=== PATIENT | female | born 1955 | race Caucasian/White ===

== ENCOUNTER 2017-02-14 21:10 | Inpatient (IN) | payer MEDICARE ==
[2017-02-14] MEDS ORDERED: fentaNYL* 50 MCG/ML 2 ML VIAL (100 MCG VIAL) IV ONE (21:46)
[2017-02-14] MEDS ORDERED: Pantoprazole IV* 40 MG IV ONE (21:46)
[2017-02-14] MEDS ORDERED: NS 0.9% 1000 ML* 2,000 ML IV ONE (21:46)
[2017-02-14] MEDS ORDERED: Ondansetron INJ* 2 MG/ML VIAL IV ONE (21:46)
[2017-02-14 22:16] LABS: Hematocrit 48 % (35-47); Hemoglobin 16.6 g/dl (12.0-16.0); Mean Corpuscular HGB Conc 35 g/dl (31-36); Mean Corpuscular Hemoglobin 28 pg (27-31); Mean Corpuscular Volume 82 fL (80-97); Mean Platelet Volume 10 um3 (7.4-10.4); Red Blood Count 5.88 10^6/ul (4.0-5.4); Red Cell Distribution Width 14 % (10.5-15); White Blood Count 6.6 10^3/ul (3.5-10.8)
[2017-02-14 22:31] LABS: Albumin 4.3 g/dL (3.2-5.2); BUN/Creatinine Ratio 33.8 (8-20); C Reactive Protein 1.19 mg/L (< 5.00); Calcium 9.4 mg/dL (8.6-10.3); EGFR African American 21.1 (>60); EGFR Non-African American 16.4 (>60); Globulin 3.2 g/dL (2-4); Magnesium 2.7 mg/dL (1.9-2.7); Total Bilirubin 0.8 mg/dL (0.2-1.0); Total Protein 7.5 g/dL (6.4-8.9)
[2017-02-14] MEDS ORDERED: Morphine INJ* 4 MG/ML 1 ML SYRINGE IV ONE (22:38)
[2017-02-14 22:50] LABS: Urine Bilirubin Negative (Negative); Urine Glucose Negative (Negative); Urine Nitrite Negative (Negative)
--- NOTE | 2017-02-14 22:53 | RAD ---
Indication: Wheezing, shortness of breath. 2 views of the chest including dual energy PA views demonstrates hyperinflated lung turk. No pleural fluid, pneumonia or pneumothorax is noted. No changes noted since October 24, 2016. IMPRESSION: Hyperinflated lung turk without evidence of pneumonia.
--- NOTE | 2017-02-14 23:02 | ED ---
Duane Bates Alok, scribed for Naga Londono MD on 02/14/17 at 2152 . Abdominal Pain/Female - HPI Summary HPI Summary: 61 y/o female presents to the ED for epigastric pain described as a burning for the last 5 days. Pt states what began as N/V/D 5 days ago with umbilical pain radiating to the pain transitioned to epigastrsic burning pain with lightheadedness and dizziness. Pt last vomited 4 days ago and has tried taking Tums with no effect. Pt states that pain worsens with food and movement and is better with rest. Pt denies hematochezia CP, SOB, fever, chills, leg pain, edema , or cyanosis. Pt also notes a cough. PMHx/PSHx includes HTN, HLD, an appendectomy at age 6 and pancreatitus a few year ago though her current symptoms are unlike anything she has experienced in the past. - History of Current Complaint Chief Complaint: EDAbdPain Stated Complaint: GEN ILL/BURNING IN ABD Time Seen by Provider: 02/14/17 21:31 Hx Obtained From: Patient ?: No Onset/Duration: Gradual Onset, Lasting Days, Still Present Timing: Constant Severity Initially: Moderate Severity Currently: Moderate Pain Intensity: 8 Pain Scale Used: 0-10 Numeric Location: Epigastric Radiates: No Character: Burning Aggravating Factor(s): Food, Movement Alleviating Factor(s): Nothing Associated Signs and Symptoms: Positive: Cough, Dizzy, Decreased Appetite, Nausea, Vomiting, Diarrhea. Negative: Fever, Chest Pain, Blood in Stool Allergies/Adverse Reactions: Allergies Allergy/AdvReac Type Severity Reaction Status Date / Time Hydrocodone Allergy Rash And Verified 02/14/17 22:17 Itching Oxycodone AdvReac Itching Verified 02/14/17 22:17 PMH/Surg Hx/FS Hx/Imm Hx Endocrine/Hematology History: Reports: Hx Anemia - HX OF Denies: Hx Diabetes Cardiovascular History: Reports: Hx Angina, Hx Coronary Artery Disease, Hx Hypercholesterolemia, Hx Hypertension - WELL CONTROLLED, Other Cardiovascular Problems/Disorders - PT STATES HX OF "CARDIAC SPASMS" Denies: Hx Myocardial Infarction, Hx Pacemaker/ICD, Hx Valvular Heart Disease - PATIENT IS NOTED TO HAVE A MURMUR Respiratory History: Reports: Hx Asthma, Hx Chronic Obstructive Pulmonary Disease (COPD) GI History: Reports: Hx Gastroesophageal Reflux Disease History: Reports: Hx Renal Disease - POLYCYSTIC DISEASE, Other Problems/ Disorders - Hx polycystic renal disease Denies: Hx Dialysis Musculoskeletal History: Reports: Hx Arthritis, Other Musculoskeletal History - MULTIPLE ORTHOPEDIC SURGERIES Sensory History: Reports: Hx Contacts or Glasses Denies: Hx Hearing Aid Opthamlomology History: Reports: Hx Contacts or Glasses Neurological History: Reports: Other Neuro Impairments/Disorders - numbness in L arm/hand Psychiatric History: Reports: Hx Anxiety, Hx Depression, Hx Panic Disorder - Surgical History Surgery Procedure, Year, and Place: JOSI SHOULDER - RTC REPAIR [facility] KNEE - 2 SURG - MENISCUS REPAIR [facility] BREAST - 2 LUMPECTOMIES - [facility] APPENDECTOMY [facility] HYSTERECTOMY [facility] CARDIAC CATH - NO STENTS Hx Anesthesia Reactions: Yes - PT STATES MOTHER HAD "UNKNOWN REACTION" TO ANESTHESIA - Immunization History Date of Tetanus Vaccine: UTD Date of Influenza Vaccine: none Infectious Disease History: Yes Infectious Disease History: Reports: Hx Hepatitis - HX HEP A A CHILD, Hx of Known/Suspected MRSA, Hx Shingles Denies: Hx Clostridium Difficile, Hx Human Immunodeficiency Virus (HIV), Hx Tuberculosis, Hx Known/Suspected VRE, Hx Known/Suspected VRSA, History Other Infectious Disease, Traveled Outside the [place] in Last 30 Days - Family History Known Family History: Positive: Cardiac Disease - Social History Occupation: Disabled Lives: With Family - Son Alcohol Use: None Substance Use Type: Reports: None Smoking Status (MU): Heavy Every Day Tobacco Smoker Type: Cigarettes Amount Used/How Often: 1/2 PPD Length of Time of Smoking/Using Tobacco: 40 YRS Have You Smoked in the Last Year: Yes Review of Systems Negative: Fever Negative: Chest Pain Positive: Cough. Negative: Shortness Of Breath Positive: Abdominal Pain, Vomiting, Diarrhea, Nausea Negative: Edema All Other Systems Reviewed And Are Negative: Yes Physical Exam - Summary Physical Exam Summary: The patient is well-nourished in no acute distress and in no acute pain. The skin is warm and dry and skin color reflects adequate perfusion. HEENT: The head is normocephalic and atraumatic. The pupils are equal and reactive. The conjunctivae are clear and without drainage. Nares are patent and without drainage. Mouth reveals dry mucous membranes and the throat is without erythema and exudate. The external ears are intact. The ear canals are patent and without drainage. The tympanic membranes are intact. Neck is supple with full range of motion and non-tender. There are no carotid bruits. There is no neck vein distension. Respiratory: Chest is non-tender. Wheezing positive. Cardiovascular: Hear is regular rate and rhythm. There is no murmur or rub auscultated. There is no peripheral edema and pulses are symmetrical and equal. Abdomen: The abdomen is soft and non-tender. There are normal bowel sounds heard in all four quadrants and there is no organomegaly palpated. Musculoskeletal: There is no back pain noted. Extremities are non-tender with full range of motion. There is good capillary refill. There is no peripheral edema or calf tenderness elicited. Neurological: Patient is alert and oriented to person, place and time. The patient has symmetrical motor strength in all four extremities. Cranial nerves are grossly intact. Deep tendon reflexes are symmetrical and equal in all four extremities. Psychiatric: The patient has an appropriate affect and does not exhibit any anxiety or depression. Triage Information Reviewed: Yes Vital Signs On Initial Exam: Initial Vitals Temp Pulse Resp BP Pulse Ox 96.6 F 57 20 107/67 97 02/14/17 21:13 02/14/17 21:13 02/14/17 21:13 02/14/17 21:13 02/14/17 21:13 Vital Signs Reviewed: Yes Diagnostics - Vital Signs Vital Signs Temp Pulse Resp BP Pulse Ox 02/14/17 21:13 96.6 F 57 20 107/67 97 - Laboratory Lab Results: Lab Results 02/14/17 02/14/17 02/14/17 Range/Units 22:00 22:00 22:00 WBC 6.6 (3.5-10.8) 10^3/ul RBC 5.88 H (4.0-5.4) 10^6/ul Hgb 16.6 H (12.0-16.0) g/dl Hct 48 H (35-47) % MCV 82 (80-97) fL MCH 28 (27-31) pg MCHC 35 (31-36) g/dl RDW 14 (10.5-15) % Plt Count 186 (150-450) 10^3/ul MPV 10 (7.4-10.4) um3 Neut % (Auto) 49.3 (38-83) % Lymph % (Auto) 33.9 (25-47) % Kinney % (Auto) 12.9 H (1-9) % Eos % (Auto) 3.5 (0-6) % Baso % (Auto) 0.4 (0-2) % Absolute Neuts (auto) 3.3 (1.5-7.7) 10^3/ul Absolute Lymphs (auto) 2.2 (1.0-4.8) 10^3/ul Absolute Monos (auto) 0.8 (0-0.8) 10^3/ul Absolute Eos (auto) 0.2 (0-0.6) 10^3/ul Absolute Basos (auto) 0 (0-0.2) 10^3/ul Absolute Nucleated RBC 0.01 10^3/ul Nucleated RBC % 0.1 INR (Anticoag Therapy) (0.89-1.11) Sodium 132 L (133-145) mmol/L Potassium 3.0 L (3.5-5.0) mmol/L Chloride 99 L (101-111) mmol/L Carbon Dioxide 20 L (22-32) mmol/L Anion Gap 13 H (2-11) mmol/L BUN 98 H (6-24) mg/dL Creatinine 2.90 H (0.51-0.95) mg/dL Est GFR ( Amer) 21.1 (>60) Est GFR (Non-Af Amer) 16.4 (>60) BUN/Creatinine Ratio 33.8 H (8-20) Glucose 110 H (70-100) mg/dL Lactic Acid 0.8 (0.5-2.0) mmol/L Calcium 9.4 (8.6-10.3) mg/dL Magnesium 2.7 (1.9-2.7) mg/dL Total Bilirubin 0.80 (0.2-1.0) mg/dL AST 16 (13-39) U/L ALT 16 (7-52) U/L Alkaline Phosphatase 109 H (34-104) U/L Troponin I 0.00 (<0.04) ng/mL C-Reactive Protein 1.19 (< 5.00) mg/L B-Natriuretic Peptide ( - 100) pg/mL Total Protein 7.5 (6.4-8.9) g/dL Albumin 4.3 (3.2-5.2) g/dL Globulin 3.2 (2-4) g/dL Albumin/Globulin Ratio 1.3 (1-3) Amylase 53 (29-103) U/L Lipase 106 H (11.0-82.0) U/L Urine Color Urine Appearance Urine pH (5-9) Ur Specific Campus (1.010-1.030) Urine Protein (Negative) Urine Ketones (Negative) Urine Blood (Negative) Urine Nitrate (Negative) Urine Bilirubin (Negative) Urine Urobilinogen (Negative) Ur Leukocyte Esterase (Negative) Urine Glucose (Negative) 02/14/17 02/14/17 02/14/17 Range/Units 22:00 22:00 22:30 WBC (3.5-10.8) 10^3/ul RBC (4.0-5.4) 10^6/ul Hgb (12.0-16.0) g/dl Hct (35-47) % MCV (80-97) fL MCH (27-31) pg MCHC (31-36) g/dl RDW (10.5-15) % Plt Count (150-450) 10^3/ul MPV (7.4-10.4) um3 Neut % (Auto) (38-83) % Lymph % (Auto) (25-47) % [place] % (Auto) (1-9) % Eos % (Auto) (0-6) % Baso % (Auto) (0-2) % Absolute Neuts (auto) (1.5-7.7) 10^3/ul Absolute Lymphs (auto) (1.0-4.8) 10^3/ul Absolute Monos (auto) (0-0.8) 10^3/ul Absolute Eos (auto) (0-0.6) 10^3/ul Absolute Basos (auto) (0-0.2) 10^3/ul Absolute Nucleated RBC 10^3/ul Nucleated RBC % INR (Anticoag Therapy) 0.92 (0.89-1.11) Sodium (133-145) mmol/L Potassium (3.5-5.0) mmol/L Chloride (101-111) mmol/L Carbon Dioxide (22-32) mmol/L Anion Gap (2-11) mmol/L BUN (6-24) mg/dL Creatinine (0.51-0.95) mg/dL Est GFR ( Amer) (>60) Est GFR (Non-Af Amer) (>60) BUN/Creatinine Ratio (8-20) Glucose (70-100) mg/dL Lactic Acid (0.5-2.0) mmol/L Calcium (8.6-10.3) mg/dL Magnesium (1.9-2.7) mg/dL Total Bilirubin (0.2-1.0) mg/dL AST (13-39) U/L ALT (7-52) U/L Alkaline Phosphatase (34-104) U/L Troponin I (<0.04) ng/mL C-Reactive Protein (< 5.00) mg/L B-Natriuretic Peptide 16 ( - 100) pg/mL Total Protein (6.4-8.9) g/dL Albumin (3.2-5.2) g/dL Globulin (2-4) g/dL Albumin/Globulin Ratio (1-3) Amylase (29-103) U/L Lipase (11.0-82.0) U/L Urine Color Yellow Urine Appearance Cloudy Urine pH 5.0 (5-9) Ur Specific Campus 1.018 (1.010-1.030) Urine Protein Negative (Negative) Urine Ketones Negative (Negative) Urine Blood Negative (Negative) Urine Nitrate Negative (Negative) Urine Bilirubin Negative (Negative) Urine Urobilinogen Negative (Negative) Ur Leukocyte Esterase Negative (Negative) Urine Glucose Negative (Negative) Result Diagrams: 02/14/17 22:00 02/14/17 22:00 Lab Statement: Any lab studies that have been ordered have been reviewed, and results considered in the medical decision making process. - Radiology CXR Xray Interpretation: No Acute Changes - Pending report Radiology Interpretation Completed By: ED Physician - Dr. Londono - CT Abd/Pel CT CT Interpretation: Positive (See Comments) - Pending report CT Interpretation Completed By: Radiologist - EKG 5517 Cardiac Rate: Bradycardia - 49 bpm EKG Rhythm: Sinus Bradycardia EKG Interpretation: No ST Elevation. No STEMI. Normal [place]. Re-Evaluation - Re-Evaluation First Eval Re-Evaluation Time: 22:48 Change: Improved Comment: informed pt she will be admited for further work up. she seems agreeable. Abdominal Pain Fem Course/Dx - Course Course Of Treatment: pt was given IV hydration and analgesia. the case was discussed with Dr. Palmer and he will admit. unable to do IV contrast secondary to pts low GFR. old records were reviewed. - Diagnoses Differential Diagnosis: Positive: Bowel Obstruction, Diverticulitis, Gall Bladder Disease, NE, Pancreatitis, Peptic Ulcer Disease, Urinary Tract Infection , Other - acute renal failure, Provider Diagnoses: Abdominal pain, Acute renal failure, Dehydration - Provider Notifications Discussed Care Of Patient With: Dr. Palmer (Hospitalist) @ [id number] - Critical Care Time Critical Care Time: 30-74 min - 30 minutes Discharge - Discharge Plan Condition: Stable Disposition: ADMITTED TO [facility] The documentation as recorded by the Duane hanson Alok accurately reflects the service I personally performed and the decisions made by Bry mckenna Drew, MD.
--- NOTE | 2017-02-14 23:33 | HP ---
H&P (Free Text) History and Physical: PCP: Jazlyn Sanchez MD Date/Time of Evaluation: 02/14/2017 2330 CC: abdominal pain, N/V/D HPI: Mrs White is a 61YO female reporting onset of epigastric burning associated with N/V/D beginning 5days ago. She denies F/C, sweats, black or bloody emesis/diarrhea, chest pain, SOB, sick contacts, or other issues. She took ABX for a UTI ~6weeks ago. The diarrhea has spontaneously improved from watery to loose, but was never more frequent than 4-6x/day. She had no episodes of fecal incontinence. Vitals are stable, afebrile. Labs show HGB 16.6, K 3.0, BUN/cre 98/2.9 ( baseline 10/0.8), & lipase 106. CT abd/pel WO was read as non-specific enteritis. PMedHx Prinzmetal's angina HTN HLD anxiety Ambulatory Orders Nursing to reconcile. ALPRAZolam TAB* [Xanax TAB*] 1 mg PO TID PRN 10/22/15 Aspirin EC TAB* [Ecotrin EC TAB*] 325 mg PO DAILY 10/22/15 Atenolol TAB* [Tenormin TAB* 50 MG] 50 mg PO DAILY 10/22/15 Esomeprazole Magnesium [Nexium] 40 mg PO DAILY 10/22/15 Vitamin A CAP* 25,000 units PO DAILY 10/22/15 Vitamin E CAP* 400 unit PO DAILY 10/22/15 FLUoxetine CAP* [Prozac CAP*] 40 mg PO DAILY 11/24/15 Amlodipine Besylate [Norvasc 10 mg tab] 10 mg PO DAILY #30 tab 03/20/16 Atorvastatin* [Lipitor*] 80 mg PO QPM #30 tab 03/20/16 Albuterol HFA INHALER* [Ventolin HFA Inhaler*] 2 puff INH Q4H #1 mdi 10/24/16 Nitroglycerin TAB 0.4 MG* 0.4 mg SL . 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 Father passed of COPD w/ HX HTN. ROS: as above, otherwise reviewed and all were negative Constitutional: NAD, normally developed, overweight white female vitals: Vital Signs Temp 35.9 C 02/14/17 21:13 Pulse 57 02/14/17 21:13 Resp 16 02/14/17 22:52 BP 107/67 02/14/17 21:13 Pulse Ox 97 02/14/17 21:13 Intake & Output 02/14/17 02/14/17 02/15/17 11:59 23:59 11:59 Weight 67.585 kg HEENM: atraumatic; sclera/conjunctiva: non-icteric/clear; hearing: clinically intact; oropharynx: clear, mucosa moist Neck: soft tissue: non-tender; thyroid: normal Pulmonary: clear to auscultation bilaterally, good aeration, no accessory muscle use CV: RR/RR, normal S1S2, no carotid bruit, no jugular venous distention, 2+ B DP/ PT, no edema Abdominal: soft, non-distended, mildly diffusely tender, no rebound/guarding/ rigidity, normoactive bowel sounds, no hepatosplenomegaly or masses, no costovertebral angle tenderness Musculoskeletal: general: grossly intact; gait: stable Integumental: normal appearance and texture Psychiatric orientation: AA&O to PPS affect: calm mood: cooperative eye contact: good content: reliable responses: timely insight: good Testing: Lab Results 02/14/17 02/14/17 02/14/17 Range/Units 22:00 22:00 22:00 WBC 6.6 (3.5-10.8) 10^3/ul RBC 5.88 H (4.0-5.4) 10^6/ul Hgb 16.6 H (12.0-16.0) g/dl Hct 48 H (35-47) % MCV 82 (80-97) fL MCH 28 (27-31) pg MCHC 35 (31-36) g/dl RDW 14 (10.5-15) % Plt Count 186 (150-450) 10^3/ul MPV 10 (7.4-10.4) um3 Neut % (Auto) 49.3 (38-83) % Lymph % (Auto) 33.9 (25-47) % [place] % (Auto) 12.9 H (1-9) % Eos % (Auto) 3.5 (0-6) % Baso % (Auto) 0.4 (0-2) % Absolute Neuts (auto) 3.3 (1.5-7.7) 10^3/ul Absolute Lymphs (auto) 2.2 (1.0-4.8) 10^3/ul Absolute Monos (auto) 0.8 (0-0.8) 10^3/ul Absolute Eos (auto) 0.2 (0-0.6) 10^3/ul Absolute Basos (auto) 0 (0-0.2) 10^3/ul Absolute Nucleated RBC 0.01 10^3/ul Nucleated RBC % 0.1 INR (Anticoag Therapy) (0.89-1.11) Sodium 132 L (133-145) mmol/L Potassium 3.0 L (3.5-5.0) mmol/L Chloride 99 L (101-111) mmol/L Carbon Dioxide 20 L (22-32) mmol/L Anion Gap 13 H (2-11) mmol/L BUN 98 H (6-24) mg/dL Creatinine 2.90 H (0.51-0.95) mg/dL Est GFR ( Amer) 21.1 (>60) Est GFR (Non-Af Amer) 16.4 (>60) BUN/Creatinine Ratio 33.8 H (8-20) Glucose 110 H (70-100) mg/dL Lactic Acid 0.8 (0.5-2.0) mmol/L Calcium 9.4 (8.6-10.3) mg/dL Magnesium 2.7 (1.9-2.7) mg/dL Total Bilirubin 0.80 (0.2-1.0) mg/dL AST 16 (13-39) U/L ALT 16 (7-52) U/L Alkaline Phosphatase 109 H (34-104) U/L Troponin I 0.00 (<0.04) ng/mL C-Reactive Protein 1.19 (< 5.00) mg/L B-Natriuretic Peptide ( - 100) pg/mL Total Protein 7.5 (6.4-8.9) g/dL Albumin 4.3 (3.2-5.2) g/dL Globulin 3.2 (2-4) g/dL Albumin/Globulin Ratio 1.3 (1-3) Amylase 53 (29-103) U/L Lipase 106 H (11.0-82.0) U/L Urine Color Urine Appearance Urine pH (5-9) Ur Specific [place] (1.010-1.030) Urine Protein (Negative) Urine Ketones (Negative) Urine Blood (Negative) Urine Nitrate (Negative) Urine Bilirubin (Negative) Urine Urobilinogen (Negative) Ur Leukocyte Esterase (Negative) Urine Glucose (Negative) 02/14/17 02/14/17 02/14/17 Range/Units 22:00 22:00 22:30 WBC (3.5-10.8) 10^3/ul RBC (4.0-5.4) 10^6/ul Hgb (12.0-16.0) g/dl Hct (35-47) % MCV (80-97) fL MCH (27-31) pg MCHC (31-36) g/dl RDW (10.5-15) % Plt Count (150-450) 10^3/ul MPV (7.4-10.4) um3 Neut % (Auto) (38-83) % Lymph % (Auto) (25-47) % Schleicher % (Auto) (1-9) % Eos % (Auto) (0-6) % Baso % (Auto) (0-2) % Absolute Neuts (auto) (1.5-7.7) 10^3/ul Absolute Lymphs (auto) (1.0-4.8) 10^3/ul Absolute Monos (auto) (0-0.8) 10^3/ul Absolute Eos (auto) (0-0.6) 10^3/ul Absolute Basos (auto) (0-0.2) 10^3/ul Absolute Nucleated RBC 10^3/ul Nucleated RBC % INR (Anticoag Therapy) 0.92 (0.89-1.11) Sodium (133-145) mmol/L Potassium (3.5-5.0) mmol/L Chloride (101-111) mmol/L Carbon Dioxide (22-32) mmol/L Anion Gap (2-11) mmol/L BUN (6-24) mg/dL Creatinine (0.51-0.95) mg/dL Est GFR ( Amer) (>60) Est GFR (Non-Af Amer) (>60) BUN/Creatinine Ratio (8-20) Glucose (70-100) mg/dL Lactic Acid (0.5-2.0) mmol/L Calcium (8.6-10.3) mg/dL Magnesium (1.9-2.7) mg/dL Total Bilirubin (0.2-1.0) mg/dL AST (13-39) U/L ALT (7-52) U/L Alkaline Phosphatase (34-104) U/L Troponin I (<0.04) ng/mL C-Reactive Protein (< 5.00) mg/L B-Natriuretic Peptide 16 ( - 100) pg/mL Total Protein (6.4-8.9) g/dL Albumin (3.2-5.2) g/dL Globulin (2-4) g/dL Albumin/Globulin Ratio (1-3) Amylase (29-103) U/L Lipase (11.0-82.0) U/L Urine Color Yellow Urine Appearance Cloudy Urine pH 5.0 (5-9) Ur Specific [place] 1.018 (1.010-1.030) Urine Protein Negative (Negative) Urine Ketones Negative (Negative) Urine Blood Negative (Negative) Urine Nitrate Negative (Negative) Urine Bilirubin Negative (Negative) Urine Urobilinogen Negative (Negative) Ur Leukocyte Esterase Negative (Negative) Urine Glucose Negative (Negative) ECG, personally reviewed: sinus bradycardia rate 49, no ischemia CXR, personally reviewed: IMPRESSION: Hyperinflated lung turk without evidence of pneumonia. CT abd/pel WO, personally reviewed: IMPRESSION: Mild thickening of proximal segments of small bowel suggesting a non-specific enteritis. Mildly prominent retroperitoneal lymph nodes are likely related to gastroentestinal inflammation. Normal appearing pancreas. Impression: 61F presenting with gastroenteritis, dehydration, & KIKA DIAGNOSIS & PLAN Primary gastroenteritis, dehydration, & KIKA : IVFs : trend renal function : anti-emetics : supportive care hypoKalemia : replace & recheck Secondary Prinzmetal's angina : continue aspirin & PRN SL nitro HTN : continue atenolol & amlodipine HLD : continue atorvastatin anxiety : continue fluoxetine & alprazolam GERD : omeprazole Admission Rational: inpatient for management of severe KIKA 2nd dehydration 2nd gastroenteritis not anticipated to adequately improve w/i 48H to allow for discharge DVTp: heparin SQ Code Status: full
[2017-02-15] MEDS ORDERED: Albuterol 2.5 MG/3 ML NEB.SOL* (0.083%) INH PRN (01:29)
[2017-02-15] MEDS ORDERED: Ondansetron INJ* 2 MG/ML VIAL IV PRN (01:30)
[2017-02-15] MEDS ORDERED: Melatonin (NF) 3 MG TAB PO PRN (01:30)
[2017-02-15] MEDS ORDERED: Potassium Chlor TAB* 20 MEQ TAB.ER PO ONE (01:36)
[2017-02-15] MEDS ORDERED: ALPRAZolam TAB* 0.5 MG PO PRN (01:38)
[2017-02-15] MEDS ORDERED: Nitroglycerin TAB 0.4 MG* 0.4 MG TAB SL PRN (01:38)
[2017-02-15] MEDS: traMADol TAB* 50 MG PO PRN ×2 (01:51→20:14)
[2017-02-15 03:47] LABS: Hematocrit 43 % (35-47); Hemoglobin 14.8 g/dl (12.0-16.0); Mean Corpuscular HGB Conc 34 g/dl (31-36); Mean Corpuscular Hemoglobin 28 pg (27-31); Mean Corpuscular Volume 82 fL (80-97); Mean Platelet Volume 10 um3 (7.4-10.4); Red Blood Count 5.26 10^6/ul (4.0-5.4); Red Cell Distribution Width 14 % (10.5-15); White Blood Count 6.9 10^3/ul (3.5-10.8)
[2017-02-15 04:02] LABS: BUN/Creatinine Ratio 36.8 (8-20); Calcium 8.4 mg/dL (8.6-10.3); EGFR African American 27.4 (>60); EGFR Non-African American 21.3 (>60); Potassium 2.9 mmol/L (3.5-5.0)
[2017-02-15] MEDS: Omeprazole CAP* 20 MG PO SCH (06:09)
[2017-02-15] MEDS: Potassium Chlor TAB* 20 MEQ TAB.ER PO SCH ×2 (06:09→08:43)
--- NOTE | 2017-02-15 07:46 | RAD ---
INDICATION: Abdominal pain COMPARISON: None TECHNIQUE: Noncontrast axial source images were acquired from the level hemidiaphragms to the symphysis pubis. The examination was ordered with oral contrast but without intravenous contrast. This limits evaluation of solid viscera. Lung bases: The lung bases are clear. Liver: The liver is normal in size. Noncontrast imaging shows no evidence of a hepatic mass or ductal dilatation. Gallbladder: Cholelithiasis. Spleen: The spleen is top normal in size. There is a tiny splenic granuloma. Pancreas: Noncontrast imaging shows no pancreatic mass or ductal dilitation. Adrenal glands: No masses are identified. Kidneys/Bladder: There is no evidence of nephrolithiasis or CT evidence of hydronephrosis. Noncontrast imaging shows low-density renal lesions bilaterally which likely represent cysts. These measure up to 3.5 cm in diameter bilateral. The bladder is unremarkable.. Adenopathy: There is no evidence of intraperitoneal or retroperitoneal adenopathy. There are several borderline retroperitoneal lymph nodes. Evaluation is limited without oral contrast. Fluid collections: There are no free or localized fluid collections. Vessels: The aorta and iliac vessels are normal in caliber. There are no significant atherosclerotic changes. The IVC appears normal Pelvic organs: There is hysterectomy. There is no adnexal mass GI tract: There are several jejunal loops with mild mucosal thickening. Consider a mild enteritis There are moderate diverticula of the sigmoid colon. There are no CT findings of acute diverticulitis. There is no obstruction. Soft tissues: No soft tissue abnormalities of the extraperitoneal abdomen or pelvis are identified. Osseous structures: There are no acute osseous findings. IMPRESSION: 1. Cholelithiasis 2. Mild mural thickening several jejunal loops may relate to a mild enteritis. 3. Moderate diverticula of the sigmoid colon. 4. Hysterectomy.
--- NOTE | 2017-02-15 07:54 | PN ---
Subjective Date of Service: 02/15/17 Interval History: Less epigastric burning today. No emesis or diarrhea since admission. No new c /o. Objective Active Medications: Albuterol (Ventolin 2.5 Mg/3 Ml Neb.Lashae*) 2.5 mg INH Q2H PRN PRN Reason: SOB/WHEEZING Alprazolam (Xanax Tab*) 1 mg PO TID PRN PRN Reason: ANXIETY Aspirin (Ecotrin Ec Tab*) 325 mg PO DAILY [facility] Atorvastatin Calcium (Lipitor*) 80 mg PO QPM [facility] Fluoxetine HCl (Prozac Cap*) 40 mg PO DAILY [facility] Heparin Sodium (Porcine) (Heparin Vial(*)) 5,000 units SUBCUT Q8HR [facility] Lactated Ringer's (Lactated Ringers 1000 Ml Bag*) 1,000 mls @ 100 mls/hr IV PER RATE [facility] Nitroglycerin (Nitroglycerin Tab 0.4 Mg*) 0.4 mg SL . NEEDED PRN PRN Reason: PAIN - CHEST Omeprazole (Prilosec Cap*) 20 mg PO DAILY@0600 [facility] Last Admin: 02/15/17 06:09 Dose: 20 mg Ondansetron HCl (Zofran Inj*) 4 mg IV Q6H PRN PRN Reason: NAUSEA Potassium Chloride (Klor Con Er Tab*) 40 meq PO Q4H [facility] Stop: 02/15/17 10:01 Last Admin: 02/15/17 06:09 Dose: 40 meq Tramadol HCl (Ultram*) 50 mg PO Q6H PRN PRN Reason: PAIN Last Admin: 02/15/17 01:51 Dose: 50 mg Vital Signs 02/15/17 02/15/17 02/15/17 01:10 01:13 01:51 Temperature 97.4 F 97.4 F Pulse Rate 55 55 Respiratory 16 16 16 Rate Blood Pressure 108/50 108/50 (mmHg) O2 Sat by Pulse 99 99 Oximetry 02/15/17 03:51 Temperature Pulse Rate Respiratory 17 Rate Blood Pressure (mmHg) O2 Sat by Pulse Oximetry Oxygen Devices in Use Now: None Appearance: Alert, supine in bed. In fair spirits. Looks comfortable. Eyes: No Scleral Icterus Ears/Nose/Mouth/Throat: Clear Oropharnyx, Mucous Membranes Moist Neck: NL Appearance and Movements; NL JVP, No Thyroid Enlargement, Masses Respiratory: Symmetrical Chest Expansion and Respiratory Effort, Clear to Auscultation, Clear to Percussion Cardiovascular: NL Sounds; No Murmurs; No JVD, RRR, No Edema, - Abdominal: NL Sounds; No Tenderness; No Distention, No Hepatosplenomegaly, - Extremities: No Edema, No Clubbing, Cyanosis, - Skin: No Rash or Ulcers, No Nodules or Sclerosis, - Neurological: Alert and Oriented x 3, NL Sensation Result Diagrams: 02/15/17 03:34 02/15/17 03:34 Additional Lab and Data: Lab Results 02/14/17 02/14/17 02/14/17 Range/Units 22:00 22:00 22:00 WBC 6.6 (3.5-10.8) 10^3/ul RBC 5.88 H (4.0-5.4) 10^6/ul Hgb 16.6 H (12.0-16.0) g/dl Hct 48 H (35-47) % MCV 82 (80-97) fL MCH 28 (27-31) pg MCHC 35 (31-36) g/dl RDW 14 (10.5-15) % Plt Count 186 (150-450) 10^3/ul MPV 10 (7.4-10.4) um3 Neut % (Auto) 49.3 (38-83) % Lymph % (Auto) 33.9 (25-47) % [place] % (Auto) 12.9 H (1-9) % Eos % (Auto) 3.5 (0-6) % Baso % (Auto) 0.4 (0-2) % Absolute Neuts (auto) 3.3 (1.5-7.7) 10^3/ul Absolute Lymphs (auto) 2.2 (1.0-4.8) 10^3/ul Absolute Monos (auto) 0.8 (0-0.8) 10^3/ul Absolute Eos (auto) 0.2 (0-0.6) 10^3/ul Absolute Basos (auto) 0 (0-0.2) 10^3/ul Absolute Nucleated RBC 0.01 10^3/ul Nucleated RBC % 0.1 INR (Anticoag Therapy) (0.89-1.11) Sodium 132 L (133-145) mmol/L Potassium 3.0 L (3.5-5.0) mmol/L Chloride 99 L (101-111) mmol/L Carbon Dioxide 20 L (22-32) mmol/L Anion Gap 13 H (2-11) mmol/L BUN 98 H (6-24) mg/dL Creatinine 2.90 H (0.51-0.95) mg/dL Est GFR ( Amer) 21.1 (>60) Est GFR (Non-Af Amer) 16.4 (>60) BUN/Creatinine Ratio 33.8 H (8-20) Glucose 110 H (70-100) mg/dL Lactic Acid 0.8 (0.5-2.0) mmol/L Calcium 9.4 (8.6-10.3) mg/dL Magnesium 2.7 (1.9-2.7) mg/dL Total Bilirubin 0.80 (0.2-1.0) mg/dL AST 16 (13-39) U/L ALT 16 (7-52) U/L Alkaline Phosphatase 109 H (34-104) U/L Troponin I 0.00 (<0.04) ng/mL C-Reactive Protein 1.19 (< 5.00) mg/L B-Natriuretic Peptide ( - 100) pg/mL Total Protein 7.5 (6.4-8.9) g/dL Albumin 4.3 (3.2-5.2) g/dL Globulin 3.2 (2-4) g/dL Albumin/Globulin Ratio 1.3 (1-3) Amylase 53 (29-103) U/L Lipase 106 H (11.0-82.0) U/L Urine Color Urine Appearance Urine pH (5-9) Ur Specific [place] (1.010-1.030) Urine Protein (Negative) Urine Ketones (Negative) Urine Blood (Negative) Urine Nitrate (Negative) Urine Bilirubin (Negative) Urine Urobilinogen (Negative) Ur Leukocyte Esterase (Negative) Urine Glucose (Negative) 02/14/17 02/14/17 02/14/17 Range/Units 22:00 22:00 22:30 WBC (3.5-10.8) 10^3/ul RBC (4.0-5.4) 10^6/ul Hgb (12.0-16.0) g/dl Hct (35-47) % MCV (80-97) fL MCH (27-31) pg MCHC (31-36) g/dl RDW (10.5-15) % Plt Count (150-450) 10^3/ul MPV (7.4-10.4) um3 Neut % (Auto) (38-83) % Lymph % (Auto) (25-47) % [place] % (Auto) (1-9) % Eos % (Auto) (0-6) % Baso % (Auto) (0-2) % Absolute Neuts (auto) (1.5-7.7) 10^3/ul Absolute Lymphs (auto) (1.0-4.8) 10^3/ul Absolute Monos (auto) (0-0.8) 10^3/ul Absolute Eos (auto) (0-0.6) 10^3/ul Absolute Basos (auto) (0-0.2) 10^3/ul Absolute Nucleated RBC 10^3/ul Nucleated RBC % INR (Anticoag Therapy) 0.92 (0.89-1.11) Sodium (133-145) mmol/L Potassium (3.5-5.0) mmol/L Chloride (101-111) mmol/L Carbon Dioxide (22-32) mmol/L Anion Gap (2-11) mmol/L BUN (6-24) mg/dL Creatinine (0.51-0.95) mg/dL Est GFR ( Amer) (>60) Est GFR (Non-Af Amer) (>60) BUN/Creatinine Ratio (8-20) Glucose (70-100) mg/dL Lactic Acid (0.5-2.0) mmol/L Calcium (8.6-10.3) mg/dL Magnesium (1.9-2.7) mg/dL Total Bilirubin (0.2-1.0) mg/dL AST (13-39) U/L ALT (7-52) U/L Alkaline Phosphatase (34-104) U/L Troponin I (<0.04) ng/mL C-Reactive Protein (< 5.00) mg/L B-Natriuretic Peptide 16 ( - 100) pg/mL Total Protein (6.4-8.9) g/dL Albumin (3.2-5.2) g/dL Globulin (2-4) g/dL Albumin/Globulin Ratio (1-3) Amylase (29-103) U/L Lipase (11.0-82.0) U/L Urine Color Yellow Urine Appearance Cloudy Urine pH 5.0 (5-9) Ur Specific [place] 1.018 (1.010-1.030) Urine Protein Negative (Negative) Urine Ketones Negative (Negative) Urine Blood Negative (Negative) Urine Nitrate Negative (Negative) Urine Bilirubin Negative (Negative) Urine Urobilinogen Negative (Negative) Ur Leukocyte Esterase Negative (Negative) Urine Glucose Negative (Negative) Microbiology and Other Data: Microbiology 02/15/17 01:00 Nasal Screen MRSA (PCR)(MELISSA) - Final Nasal Mrsa Negative Assess/Plan/Problems-Billing Assessment: - Patient Problems (1) Gastroenteritis Current Visit: Yes Status: Acute Code(s): K52.9 - NONINFECTIVE GASTROENTERITIS AND COLITIS, UNSPECIFIED SNOMED Code(s): 90070366 Comment: Improving. Supportive tx. (2) KIKA (acute kidney injury) Current Visit: Yes Status: Acute Code(s): N17.9 - ACUTE KIDNEY FAILURE, UNSPECIFIED SNOMED Code(s): 96553172 Comment: Improved. Decrease IV to 100 ml/hr. BMP 02/16. (3) Tobacco abuse Current Visit: No Status: Acute Code(s): Z72.0 - TOBACCO USE SNOMED Code(s ): 943683508 Comment: Pt advised to quit smoking and avoid second hand smoke,. (4) HTN (hypertension) Current Visit: No Status: Acute Code(s): I10 - ESSENTIAL (PRIMARY) HYPERTENSION SNOMED Code(s): 98448387 Comment: Amlodipine on hold. (5) COPD (chronic obstructive pulmonary disease) Current Visit: Yes Status: Acute Code(s): J44.9 - CHRONIC OBSTRUCTIVE PULMONARY DISEASE, UNSPECIFIED SNOMED Code(s): 60221140 Comment: Albuterol PRN.
[2017-02-15] MEDS: Aspirin EC TAB* 325 MG PO SCH (08:42)
[2017-02-15] MEDS: FLUoxetine CAP* 20 MG PO SCH (08:43)
[2017-02-15] MEDS ORDERED: NS 0.9% 500 ML BAG* 500 ML IV SCH (13:00)
[2017-02-15] MEDS ORDERED: Atorvastatin* 80 MG TAB PO SCH (18:00)
[2017-02-15 18:44] LABS: TSH (Thyroid Stimulating Horm) 1.02 mcIU/mL (0.34-5.60)
[2017-02-16] MEDS: Omeprazole CAP* 20 MG PO SCH (05:16)
[2017-02-16] MEDS ORDERED: Heparin VIAL(*) 5000 UNITS/ML VIAL (FIVE THOUSAND) SUBCUT SCH (06:00)
[2017-02-16 06:59] LABS: Calcium 8.5 mg/dL (8.6-10.3); EGFR African American 65.2 (>60); EGFR Non-African American 50.7 (>60); Potassium 3.9 mmol/L (3.5-5.0)
[2017-02-16 07:57] VITALS: BP 116/54
--- NOTE | 2017-02-16 08:57 | DCNOTE ---
Subjective Date of Service: 02/16/17 Interval History: Mild diarrhea. Good appetite. No new c/o, anxious to go home. Objective Active Medications: Albuterol (Ventolin 2.5 Mg/3 Ml Neb.Lsahae*) 2.5 mg INH Q2H PRN PRN Reason: SOB/WHEEZING Alprazolam (Xanax Tab*) 1 mg PO TID PRN PRN Reason: ANXIETY Last Admin: 02/15/17 20:22 Dose: 1 mg Aspirin (Ecotrin Ec Tab*) 325 mg PO DAILY [facility] Last Admin: 02/15/17 08:42 Dose: 325 mg Atorvastatin Calcium (Lipitor*) 80 mg PO QPM [facility] Last Admin: 02/15/17 18:07 Dose: 80 mg Fluoxetine HCl (Prozac Cap*) 40 mg PO DAILY [facility] Last Admin: 02/15/17 08:43 Dose: 40 mg Heparin Sodium (Porcine) (Heparin Vial(*)) 5,000 units SUBCUT Q8HR [facility] Last Admin: 02/16/17 05:16 Dose: 5,000 units Nitroglycerin (Nitroglycerin Tab 0.4 Mg*) 0.4 mg SL . NEEDED PRN PRN Reason: PAIN - CHEST Omeprazole (Prilosec Cap*) 20 mg PO DAILY@0600 [facility] Last Admin: 02/16/17 05:16 Dose: 20 mg Ondansetron HCl (Zofran Inj*) 4 mg IV Q6H PRN PRN Reason: NAUSEA Last Admin: 02/15/17 20:15 Dose: 4 mg Tramadol HCl (Ultram*) 50 mg PO Q6H PRN PRN Reason: PAIN Last Admin: 02/15/17 20:14 Dose: 50 mg Vital Signs 02/15/17 02/15/17 02/15/17 11:33 12:14 15:14 Temperature 97.7 F 98.1 F Pulse Rate 50 47 51 Respiratory 18 Rate Blood Pressure 98/49 105/51 104/54 (mmHg) O2 Sat by Pulse 96 96 98 Oximetry 02/15/17 02/15/17 02/15/17 19:43 20:14 20:22 Temperature 98.3 F Pulse Rate 52 Respiratory 16 16 18 Rate Blood Pressure 103/47 (mmHg) O2 Sat by Pulse 97 Oximetry 02/15/17 02/15/17 02/15/17 20:29 22:14 22:22 Temperature Pulse Rate Respiratory 16 16 16 Rate Blood Pressure (mmHg) O2 Sat by Pulse Oximetry 02/15/17 02/16/17 02/16/17 23:30 05:04 07:15 Temperature 97.5 F 98.1 F 97.4 F Pulse Rate 60 47 49 Respiratory 16 20 18 Rate Blood Pressure 125/59 117/58 116/54 (mmHg) O2 Sat by Pulse 98 95 98 Oximetry 02/16/17 08:19 Temperature Pulse Rate 60 Respiratory 14 Rate Blood Pressure (mmHg) O2 Sat by Pulse 96 Oximetry Oxygen Devices in Use Now: None Appearance: Alert, sitting up in be.d Eyes: No Scleral Icterus Cardiovascular: NL Sounds; No Murmurs; No JVD, RRR, No Edema, - Extremities: No Edema, No Clubbing, Cyanosis, - Skin: No Rash or Ulcers, No Nodules or Sclerosis, - Neurological: Alert and Oriented x 3, NL Sensation Result Diagrams: 02/15/17 03:34 02/16/17 06:28 Additional Lab and Data: Lab Results 02/14/17 02/14/17 02/14/17 Range/Units 22:00 22:00 22:00 WBC 6.6 (3.5-10.8) 10^3/ul RBC 5.88 H (4.0-5.4) 10^6/ul Hgb 16.6 H (12.0-16.0) g/dl Hct 48 H (35-47) % MCV 82 (80-97) fL MCH 28 (27-31) pg MCHC 35 (31-36) g/dl RDW 14 (10.5-15) % Plt Count 186 (150-450) 10^3/ul MPV 10 (7.4-10.4) um3 Neut % (Auto) 49.3 (38-83) % Lymph % (Auto) 33.9 (25-47) % [place] % (Auto) 12.9 H (1-9) % Eos % (Auto) 3.5 (0-6) % Baso % (Auto) 0.4 (0-2) % Absolute Neuts (auto) 3.3 (1.5-7.7) 10^3/ul Absolute Lymphs (auto) 2.2 (1.0-4.8) 10^3/ul Absolute Monos (auto) 0.8 (0-0.8) 10^3/ul Absolute Eos (auto) 0.2 (0-0.6) 10^3/ul Absolute Basos (auto) 0 (0-0.2) 10^3/ul Absolute Nucleated RBC 0.01 10^3/ul Nucleated RBC % 0.1 INR (Anticoag Therapy) (0.89-1.11) Sodium 132 L (133-145) mmol/L Potassium 3.0 L (3.5-5.0) mmol/L Chloride 99 L (101-111) mmol/L Carbon Dioxide 20 L (22-32) mmol/L Anion Gap 13 H (2-11) mmol/L BUN 98 H (6-24) mg/dL Creatinine 2.90 H (0.51-0.95) mg/dL Est GFR ( Amer) 21.1 (>60) Est GFR (Non-Af Amer) 16.4 (>60) BUN/Creatinine Ratio 33.8 H (8-20) Glucose 110 H (70-100) mg/dL Lactic Acid 0.8 (0.5-2.0) mmol/L Calcium 9.4 (8.6-10.3) mg/dL Magnesium 2.7 (1.9-2.7) mg/dL Total Bilirubin 0.80 (0.2-1.0) mg/dL AST 16 (13-39) U/L ALT 16 (7-52) U/L Alkaline Phosphatase 109 H (34-104) U/L Troponin I 0.00 (<0.04) ng/mL C-Reactive Protein 1.19 (< 5.00) mg/L B-Natriuretic Peptide ( - 100) pg/mL Total Protein 7.5 (6.4-8.9) g/dL Albumin 4.3 (3.2-5.2) g/dL Globulin 3.2 (2-4) g/dL Albumin/Globulin Ratio 1.3 (1-3) Amylase 53 (29-103) U/L Lipase 106 H (11.0-82.0) U/L Urine Color Urine Appearance Urine pH (5-9) Ur Specific [place] (1.010-1.030) Urine Protein (Negative) Urine Ketones (Negative) Urine Blood (Negative) Urine Nitrate (Negative) Urine Bilirubin (Negative) Urine Urobilinogen (Negative) Ur Leukocyte Esterase (Negative) Urine Glucose (Negative) 02/14/17 02/14/17 02/14/17 Range/Units 22:00 22:00 22:30 WBC (3.5-10.8) 10^3/ul RBC (4.0-5.4) 10^6/ul Hgb (12.0-16.0) g/dl Hct (35-47) % MCV (80-97) fL MCH (27-31) pg MCHC (31-36) g/dl RDW (10.5-15) % Plt Count (150-450) 10^3/ul MPV (7.4-10.4) um3 Neut % (Auto) (38-83) % Lymph % (Auto) (25-47) % [place] % (Auto) (1-9) % Eos % (Auto) (0-6) % Baso % (Auto) (0-2) % Absolute Neuts (auto) (1.5-7.7) 10^3/ul Absolute Lymphs (auto) (1.0-4.8) 10^3/ul Absolute Monos (auto) (0-0.8) 10^3/ul Absolute Eos (auto) (0-0.6) 10^3/ul Absolute Basos (auto) (0-0.2) 10^3/ul Absolute Nucleated RBC 10^3/ul Nucleated RBC % INR (Anticoag Therapy) 0.92 (0.89-1.11) Sodium (133-145) mmol/L Potassium (3.5-5.0) mmol/L Chloride (101-111) mmol/L Carbon Dioxide (22-32) mmol/L Anion Gap (2-11) mmol/L BUN (6-24) mg/dL Creatinine (0.51-0.95) mg/dL Est GFR ( Amer) (>60) Est GFR (Non-Af Amer) (>60) BUN/Creatinine Ratio (8-20) Glucose (70-100) mg/dL Lactic Acid (0.5-2.0) mmol/L Calcium (8.6-10.3) mg/dL Magnesium (1.9-2.7) mg/dL Total Bilirubin (0.2-1.0) mg/dL AST (13-39) U/L ALT (7-52) U/L Alkaline Phosphatase (34-104) U/L Troponin I (<0.04) ng/mL C-Reactive Protein (< 5.00) mg/L B-Natriuretic Peptide 16 ( - 100) pg/mL Total Protein (6.4-8.9) g/dL Albumin (3.2-5.2) g/dL Globulin (2-4) g/dL Albumin/Globulin Ratio (1-3) Amylase (29-103) U/L Lipase (11.0-82.0) U/L Urine Color Yellow Urine Appearance Cloudy Urine pH 5.0 (5-9) Ur Specific [place] 1.018 (1.010-1.030) Urine Protein Negative (Negative) Urine Ketones Negative (Negative) Urine Blood Negative (Negative) Urine Nitrate Negative (Negative) Urine Bilirubin Negative (Negative) Urine Urobilinogen Negative (Negative) Ur Leukocyte Esterase Negative (Negative) Urine Glucose Negative (Negative) Microbiology and Other Data: Microbiology 02/15/17 01:00 Nasal Screen MRSA (PCR)(MELISSA) - Final Nasal Mrsa Negative Assess/Plan/Problems-Billing Assessment: - Patient Problems (1) Gastroenteritis Current Visit: Yes Status: Acute Code(s): K52.9 - NONINFECTIVE GASTROENTERITIS AND COLITIS, UNSPECIFIED SNOMED Code(s): 84204668 Comment: Much improved. Can fup with Dr. Sanchez. (2) KIKA (acute kidney injury) Current Visit: Yes Status: Acute Code(s): N17.9 - ACUTE KIDNEY FAILURE, UNSPECIFIED SNOMED Code(s): 04624888 Comment: Much improved. Can fup with Dr. Sanchez. (3) Tobacco abuse Current Visit: No Status: Acute Code(s): Z72.0 - TOBACCO USE SNOMED Code(s ): 812930388 Comment: Pt again advised to quit smoking and avoid second hand smoke,. (4) HTN (hypertension) Current Visit: No Status: Acute Code(s): I10 - ESSENTIAL (PRIMARY) HYPERTENSION SNOMED Code(s): 35968434 Comment: Amlodipine on hold. (5) COPD (chronic obstructive pulmonary disease) Current Visit: Yes Status: Acute Code(s): J44.9 - CHRONIC OBSTRUCTIVE PULMONARY DISEASE, UNSPECIFIED SNOMED Code(s): 08754512 Comment: Albuterol PRN. Status and Disposition: Discharge now. Fup with Dr. Sanchez.
--- NOTE | 2017-02-16 08:58 | DCNOTE ---
Subjective Date of Service: 02/16/17 Interval History: See earlier note today. Objective Active Medications: Albuterol (Ventolin 2.5 Mg/3 Ml Neb.Lashae*) 2.5 mg INH Q2H PRN PRN Reason: SOB/WHEEZING Alprazolam (Xanax Tab*) 1 mg PO TID PRN PRN Reason: ANXIETY Last Admin: 02/15/17 20:22 Dose: 1 mg Aspirin (Ecotrin Ec Tab*) 325 mg PO DAILY [facility] Last Admin: 02/15/17 08:42 Dose: 325 mg Atorvastatin Calcium (Lipitor*) 80 mg PO QPM [facility] Last Admin: 02/15/17 18:07 Dose: 80 mg Fluoxetine HCl (Prozac Cap*) 40 mg PO DAILY [facility] Last Admin: 02/15/17 08:43 Dose: 40 mg Heparin Sodium (Porcine) (Heparin Vial(*)) 5,000 units SUBCUT Q8HR [facility] Last Admin: 02/16/17 05:16 Dose: 5,000 units Nitroglycerin (Nitroglycerin Tab 0.4 Mg*) 0.4 mg SL . NEEDED PRN PRN Reason: PAIN - CHEST Omeprazole (Prilosec Cap*) 20 mg PO DAILY@0600 [facility] Last Admin: 02/16/17 05:16 Dose: 20 mg Ondansetron HCl (Zofran Inj*) 4 mg IV Q6H PRN PRN Reason: NAUSEA Last Admin: 02/15/17 20:15 Dose: 4 mg Tramadol HCl (Ultram*) 50 mg PO Q6H PRN PRN Reason: PAIN Last Admin: 02/15/17 20:14 Dose: 50 mg Vital Signs 02/15/17 02/15/17 02/15/17 11:33 12:14 15:14 Temperature 97.7 F 98.1 F Pulse Rate 50 47 51 Respiratory 18 Rate Blood Pressure 98/49 105/51 104/54 (mmHg) O2 Sat by Pulse 96 96 98 Oximetry 02/15/17 02/15/17 02/15/17 19:43 20:14 20:22 Temperature 98.3 F Pulse Rate 52 Respiratory 16 16 18 Rate Blood Pressure 103/47 (mmHg) O2 Sat by Pulse 97 Oximetry 02/15/17 02/15/17 02/15/17 20:29 22:14 22:22 Temperature Pulse Rate Respiratory 16 16 16 Rate Blood Pressure (mmHg) O2 Sat by Pulse Oximetry 02/15/17 02/16/17 02/16/17 23:30 05:04 07:15 Temperature 97.5 F 98.1 F 97.4 F Pulse Rate 60 47 49 Respiratory 16 20 18 Rate Blood Pressure 125/59 117/58 116/54 (mmHg) O2 Sat by Pulse 98 95 98 Oximetry 02/16/17 08:19 Temperature Pulse Rate 60 Respiratory 14 Rate Blood Pressure (mmHg) O2 Sat by Pulse 96 Oximetry Oxygen Devices in Use Now: None Result Diagrams: 02/15/17 03:34 02/16/17 06:28 Additional Lab and Data: Lab Results 02/14/17 02/14/17 02/14/17 Range/Units 22:00 22:00 22:00 WBC 6.6 (3.5-10.8) 10^3/ul RBC 5.88 H (4.0-5.4) 10^6/ul Hgb 16.6 H (12.0-16.0) g/dl Hct 48 H (35-47) % MCV 82 (80-97) fL MCH 28 (27-31) pg MCHC 35 (31-36) g/dl RDW 14 (10.5-15) % Plt Count 186 (150-450) 10^3/ul MPV 10 (7.4-10.4) um3 Neut % (Auto) 49.3 (38-83) % Lymph % (Auto) 33.9 (25-47) % [place] % (Auto) 12.9 H (1-9) % Eos % (Auto) 3.5 (0-6) % Baso % (Auto) 0.4 (0-2) % Absolute Neuts (auto) 3.3 (1.5-7.7) 10^3/ul Absolute Lymphs (auto) 2.2 (1.0-4.8) 10^3/ul Absolute Monos (auto) 0.8 (0-0.8) 10^3/ul Absolute Eos (auto) 0.2 (0-0.6) 10^3/ul Absolute Basos (auto) 0 (0-0.2) 10^3/ul Absolute Nucleated RBC 0.01 10^3/ul Nucleated RBC % 0.1 INR (Anticoag Therapy) (0.89-1.11) Sodium 132 L (133-145) mmol/L Potassium 3.0 L (3.5-5.0) mmol/L Chloride 99 L (101-111) mmol/L Carbon Dioxide 20 L (22-32) mmol/L Anion Gap 13 H (2-11) mmol/L BUN 98 H (6-24) mg/dL Creatinine 2.90 H (0.51-0.95) mg/dL Est GFR ( Amer) 21.1 (>60) Est GFR (Non-Af Amer) 16.4 (>60) BUN/Creatinine Ratio 33.8 H (8-20) Glucose 110 H (70-100) mg/dL Lactic Acid 0.8 (0.5-2.0) mmol/L Calcium 9.4 (8.6-10.3) mg/dL Magnesium 2.7 (1.9-2.7) mg/dL Total Bilirubin 0.80 (0.2-1.0) mg/dL AST 16 (13-39) U/L ALT 16 (7-52) U/L Alkaline Phosphatase 109 H (34-104) U/L Troponin I 0.00 (<0.04) ng/mL C-Reactive Protein 1.19 (< 5.00) mg/L B-Natriuretic Peptide ( - 100) pg/mL Total Protein 7.5 (6.4-8.9) g/dL Albumin 4.3 (3.2-5.2) g/dL Globulin 3.2 (2-4) g/dL Albumin/Globulin Ratio 1.3 (1-3) Amylase 53 (29-103) U/L Lipase 106 H (11.0-82.0) U/L Urine Color Urine Appearance Urine pH (5-9) Ur Specific [place] (1.010-1.030) Urine Protein (Negative) Urine Ketones (Negative) Urine Blood (Negative) Urine Nitrate (Negative) Urine Bilirubin (Negative) Urine Urobilinogen (Negative) Ur Leukocyte Esterase (Negative) Urine Glucose (Negative) 02/14/17 02/14/17 02/14/17 Range/Units 22:00 22:00 22:30 WBC (3.5-10.8) 10^3/ul RBC (4.0-5.4) 10^6/ul Hgb (12.0-16.0) g/dl Hct (35-47) % MCV (80-97) fL MCH (27-31) pg MCHC (31-36) g/dl RDW (10.5-15) % Plt Count (150-450) 10^3/ul MPV (7.4-10.4) um3 Neut % (Auto) (38-83) % Lymph % (Auto) (25-47) % [place] % (Auto) (1-9) % Eos % (Auto) (0-6) % Baso % (Auto) (0-2) % Absolute Neuts (auto) (1.5-7.7) 10^3/ul Absolute Lymphs (auto) (1.0-4.8) 10^3/ul Absolute Monos (auto) (0-0.8) 10^3/ul Absolute Eos (auto) (0-0.6) 10^3/ul Absolute Basos (auto) (0-0.2) 10^3/ul Absolute Nucleated RBC 10^3/ul Nucleated RBC % INR (Anticoag Therapy) 0.92 (0.89-1.11) Sodium (133-145) mmol/L Potassium (3.5-5.0) mmol/L Chloride (101-111) mmol/L Carbon Dioxide (22-32) mmol/L Anion Gap (2-11) mmol/L BUN (6-24) mg/dL Creatinine (0.51-0.95) mg/dL Est GFR ( Amer) (>60) Est GFR (Non-Af Amer) (>60) BUN/Creatinine Ratio (8-20) Glucose (70-100) mg/dL Lactic Acid (0.5-2.0) mmol/L Calcium (8.6-10.3) mg/dL Magnesium (1.9-2.7) mg/dL Total Bilirubin (0.2-1.0) mg/dL AST (13-39) U/L ALT (7-52) U/L Alkaline Phosphatase (34-104) U/L Troponin I (<0.04) ng/mL C-Reactive Protein (< 5.00) mg/L B-Natriuretic Peptide 16 ( - 100) pg/mL Total Protein (6.4-8.9) g/dL Albumin (3.2-5.2) g/dL Globulin (2-4) g/dL Albumin/Globulin Ratio (1-3) Amylase (29-103) U/L Lipase (11.0-82.0) U/L Urine Color Yellow Urine Appearance Cloudy Urine pH 5.0 (5-9) Ur Specific [place] 1.018 (1.010-1.030) Urine Protein Negative (Negative) Urine Ketones Negative (Negative) Urine Blood Negative (Negative) Urine Nitrate Negative (Negative) Urine Bilirubin Negative (Negative) Urine Urobilinogen Negative (Negative) Ur Leukocyte Esterase Negative (Negative) Urine Glucose Negative (Negative) Microbiology and Other Data: Microbiology 02/15/17 01:00 Nasal Screen MRSA (PCR)(MELISSA) - Final Nasal Mrsa Negative Assess/Plan/Problems-Billing Assessment: - Patient Problems (1) Gastroenteritis Current Visit: Yes Status: Acute Code(s): K52.9 - NONINFECTIVE GASTROENTERITIS AND COLITIS, UNSPECIFIED SNOMED Code(s): 77105106 Comment: Much improved. Can fup with Dr. Sanchez. (2) KIKA (acute kidney injury) Current Visit: Yes Status: Acute Code(s): N17.9 - ACUTE KIDNEY FAILURE, UNSPECIFIED SNOMED Code(s): 12988177 Comment: Much improved. Can fup with Dr. Sanchez. (3) Tobacco abuse Current Visit: No Status: Acute Code(s): Z72.0 - TOBACCO USE SNOMED Code(s ): 868171832 Comment: Pt again advised to quit smoking and avoid second hand smoke,. (4) HTN (hypertension) Current Visit: No Status: Acute Code(s): I10 - ESSENTIAL (PRIMARY) HYPERTENSION SNOMED Code(s): 85350747 Comment: Amlodipine on hold. (5) COPD (chronic obstructive pulmonary disease) Current Visit: Yes Status: Acute Code(s): J44.9 - CHRONIC OBSTRUCTIVE PULMONARY DISEASE, UNSPECIFIED SNOMED Code(s): 70828948 Comment: Albuterol PRN. (6) HTN (hypertension) Current Visit: Yes Status: Acute Code(s): I10 - ESSENTIAL (PRIMARY) HYPERTENSION SNOMED Code(s): 00502508 Comment: BP 116/54 off her BP meds. Continue to withhold them until her visit with Dr. Sanchez. Status and Disposition: Discharge now. Fup with Dr. Sanchez.
[2017-02-16] MEDS: Aspirin EC TAB* 325 MG PO SCH (08:59)
[2017-02-16] MEDS: FLUoxetine CAP* 20 MG PO SCH (08:59)
--- NOTE | 2017-02-16 09:21 | PN ---
Progress Note - Progress Note Note: Time spent on discharge 55 minutes.
--- NOTE | 2017-02-16 22:55 | DS ---
Amended report to enter date of admission. DISCHARGE SUMMARY: DATE OF ADMISSION: 02/14/17 DATE OF DISCHARGE: 02/16/17 HISTORY: This 61-year-old woman came to the emergency room with a chief complaint of abdominal pain, nausea, vomiting, and diarrhea. She had an antibiotic for urinary tract infection 6 weeks ago. I know there has been many cases of gastroenteritis through the community. The patient was given intravenous fluids and treated symptomatically. She had a CT scan of the abdomen and pelvis as well as a chest x-ray while here. She had acute kidney injury, which was almost completely resolved by the time of discharge. Her creatinine fell from 2.90 to 1.09 on the day of discharge. Symptomatically, she is much better. I think the abdominal pain was probably due to the emesis at home. She was markedly improved with just a little bit of residual diarrhea by the time of discharge. She did not receive any antihypertensive medications in the hospital. Her highest systolic blood pressure here was 125 and the highest diastolic blood pressure was 67, on the morning of discharge it was 116/54. I advised to not to take any blood pressure medication until her visit with Dr. Sanchez. She was strongly encouraged to quit smoking. She was advised to have a low-salt diet. FINAL DIAGNOSES: 1. Gastroenteritis. 2. Acute injury. 3. Tobacco abuse. 4. Hypertension. 5. Chronic obstructive pulmonary disease. DISCHARGE MEDICATIONS: 1. Vitamin E 400 units daily. 2. Vitamin A 25,000 units daily. 3. Alprazolam 1 mg t.i.d. p.r.n. 4. Esomeprazole 40 mg daily. 5. Aspirin 325 mg p.o. daily. 6. Fluoxetine 40 mg daily. 7. Albuterol 2 puffs every 4 hours as needed. 8. Nitroglycerin 0.4 mg sublingual as needed. CC: Dr. Sanchez* [id number]/[facility] #: [id number] [facility]andra
== END 2017-02-16 10:45 | disposition home or self-care (01) | DRG 683 ==
LOC: ED 21:10 → MED 23:53
PROVIDERS: ADMIT Hospitalist; ATTEND Internal Medicine
DX: N17.9 Acute kidney failure, unspecified (principal); Q61.3 Polycystic kidney, unspecified; K52.9 Noninfective gastroenteritis and colitis, unspecified; I10 Essential (primary) hypertension; E86.0 Dehydration; E78.5 Hyperlipidemia, unspecified; I25.111 Atherosclerotic heart disease of native coronary artery with angina pectoris with documented spasm; E78.00 Pure hypercholesterolemia, unspecified; J44.9 Chronic obstructive pulmonary disease, unspecified; K21.9 Gastro-esophageal reflux disease without esophagitis; M19.90 Unspecified osteoarthritis, unspecified site; F41.0 Panic disorder [episodic paroxysmal anxiety]; F32.9 Major depressive disorder, single episode, unspecified; F17.210 Nicotine dependence, cigarettes, uncomplicated; E87.6 Hypokalemia; Z88.6 Allergy status to analgesic agent; Z90.710 Acquired absence of both cervix and uterus; Z82.49 Family history of ischemic heart disease and other diseases of the circulatory system; Z87.440 Personal history of urinary (tract) infections; Z82.0 Family history of epilepsy and other diseases of the nervous system; Z82.5 Family history of asthma and other chronic lower respiratory diseases; Z79.82 Long term (current) use of aspirin
CPT/HCPCS: 36415; 71020; 74176; 80048; 80053; 81003; 82150; 83605; 83690; 83735; 83880; 84443; 84484; 85025; 85027; 85610; 85730; 86140; 87641; 93005; A9270-GY; J1644; J2270; J2405; J3010

== ENCOUNTER 2017-03-26 21:41 | Emergency (ER) | payer MEDICARE ==
[2017-03-26] MEDS ORDERED: Albuterol/Ipratropium NEB.SOL* Albuterol 2.5 MG/Ipratropium 0.5 MG 3 ML INH ONE (21:59)
[2017-03-26] MEDS ORDERED: predniSONE TAB* 20 MG PO ONE (21:59)
--- NOTE | 2017-03-26 22:07 | ED ---
Mahesh Bates Benjamin, scribed for Tato Lott MD on 03/26/17 at 2202 . Shortness of Breath - HPI Summary HPI Summary: 62yo female c/o SOB and cough for 3-4 days. Pt started having her symptoms are inhaling some cleaning chemicals 3-4 days ago. No other symptoms. Hx includes COPD. Former smoker. - History of Current Complaint Chief Complaint: EDShortnessOfBreath Time Seen by Provider: 03/26/17 21:52 Hx Obtained From: Patient Onset/Duration: Sudden Onset, Lasting Days, Still Present Timing: Constant Current Severity: Mild Dyspnea At: Rest Aggrevating Factors: Nothing Alleviating Factors: Nothing Associated Signs & Symptoms: Cough (Nonproductive) - Allergy/Home Medications Allergies/Adverse Reactions: Allergies Allergy/AdvReac Type Severity Reaction Status Date / Time Hydrocodone Allergy Rash And Verified 02/14/17 22:17 Itching Oxycodone AdvReac Itching Verified 02/14/17 22:17 PMH/Surg Hx/FS Hx/Imm Hx Endocrine/Hematology History: Reports: Hx Anemia - HX OF Denies: Hx Diabetes Cardiovascular History: Reports: Hx Angina - Prinzmetal's angina, Hx Coronary Artery Disease, Hx Hypercholesterolemia, Hx Hypertension - WELL CONTROLLED, Other Cardiovascular Problems/Disorders - HLD Denies: Hx Myocardial Infarction, Hx Pacemaker/ICD, Hx Valvular Heart Disease - PATIENT IS NOTED TO HAVE A MURMUR Respiratory History: Reports: Hx Asthma, Hx Chronic Obstructive Pulmonary Disease (COPD) GI History: Reports: Hx Gastroesophageal Reflux Disease, Other GI Disorders - Pancreatitis History: Reports: Hx Renal Disease - POLYCYSTIC DISEASE, Other Problems/ Disorders - Hx polycystic renal disease Denies: Hx Dialysis Musculoskeletal History: Reports: Hx Arthritis, Other Musculoskeletal History - MULTIPLE ORTHOPEDIC SURGERIES Sensory History: Reports: Hx Vision Problem - lazy eye Denies: Hx Cataracts, Hx Contacts or Glasses, Hx Hearing Aid Opthamlomology History: Reports: Hx Vision Problem - lazy eye Denies: Hx Cataracts, Hx Contacts or Glasses Neurological History: Reports: Other Neuro Impairments/Disorders - numbness in L arm/hand Psychiatric History: Reports: Hx Anxiety, Hx Depression, Hx Panic Disorder - Surgical History Surgery Procedure, Year, and Place: JOSI SHOULDER - RTC REPAIR [facility] Lt [facility]NEE - 2 SURG - MENISCUS REPAIR [facility] Lt BREAST - 2 LUMPECTOMIES - [facility] APPENDECTOMY [facility] HYSTERECTOMY [facility]. CARDIAC CATH - NO STENTS. Paridectomy Hx Anesthesia Reactions: Yes - PT STATES MOTHER HAD "UNKNOWN REACTION" TO ANESTHESIA - Immunization History Date of Tetanus Vaccine: UTD Date of Influenza Vaccine: none Infectious Disease History: No Infectious Disease History: Reports: Hx Hepatitis - HX HEP A A CHILD, Hx of Known/Suspected MRSA, Hx Shingles Denies: Hx Clostridium Difficile, Hx Human Immunodeficiency Virus (HIV), Hx Tuberculosis, Hx Known/Suspected VRE, Hx Known/Suspected VRSA, History Other Infectious Disease, Traveled Outside the [place] in Last 30 Days - Family History Known Family History: Positive: Cardiac Disease, Other - CAD - Social History Occupation: Disabled Lives: With Family Alcohol Use: Rare Substance Use Type: Reports: None Smoking Status (MU): Former Smoker Type: Cigarettes Amount Used/How Often: 1/2 PPD Length of Time of Smoking/Using Tobacco: 40 YRS Have You Smoked in the Last Year: Yes Review of Systems Constitutional: Negative Eyes: Negative ENT: Negative Cardiovascular: Negative Positive: Shortness Of Breath, Cough Gastrointestinal: Negative Genitourinary: Negative Musculoskeletal: Negative Skin: Negative Neurological: Negative Psychological: Normal All Other Systems Reviewed And Are Negative: Yes Physical Exam Triage Information Reviewed: Yes Vital Signs On Initial Exam: Initial Vitals Temp Pulse Resp BP Pulse Ox 99.5 F 108 18 156/82 96 03/26/17 21:43 03/26/17 21:43 03/26/17 21:43 03/26/17 21:43 03/26/17 21:43 Vital Signs Reviewed: Yes Appearance: Positive: Well-Appearing, No Pain Distress Skin: Positive: Warm Head/Face: Positive: Normal Head/Face Inspection Eyes: Positive: KARY ENT: Positive: Hearing grossly normal Neck: Positive: Supple Respiratory/Lung Sounds: Positive: Breath Sounds Present, Wheezes - bilat scattered exp with prolonged expiration. Negative: Rhonchi Cardiovascular: Positive: RRR Abdomen Description: Positive: Nontender, Soft Bowel Sounds: Positive: Present Musculoskeletal: Positive: Strength/ROM Intact Neurological: Positive: Alert, Oriented to Person Place, Time Diagnostics - Vital Signs Vital Signs Temp Pulse Resp BP Pulse Ox 03/26/17 21:43 99.5 F 108 18 156/82 96 - Laboratory Lab Statement: Any lab studies that have been ordered have been reviewed, and results considered in the medical decision making process. - Radiology CXR Xray Interpretation: Positive (See Comments) - poss rll infilt Radiology Interpretation Completed By: ED Physician - EKG 2148 Cardiac Rate: Tachycardia - 103bpm EKG Rhythm: Sinus Tachycardia ST Segment: Normal Re-Evaluation - Re-Evaluation First Eval Change: Improved Course/Dx - Diagnoses Provider Diagnoses: Asthma, Bronchitis Discharge - Discharge Plan Condition: Improved Disposition: HOME Prescriptions: Azithromycin TAB* [Zithromax TAB (Z-IVANA) 250 mg #6 tabs] 250 mg PO DAILY #4 tab predniSONE TAB* [Deltasone TAB*] 40 mg PO DAILY #8 tab Patient Education Materials: Asthma (ED) Referrals: Toan Palmer MD [Primary Care Provider] - The documentation as recorded by the Mahesh hanson Benjamin accurately reflects the service I personally performed and the decisions made by me, Tato Lott MD.
[2017-03-26] MEDS ORDERED: Azithromycin TAB* 250 MG PO ONE (22:30)
[2017-03-26 22:49] VITALS: BP 128/69
--- NOTE | 2017-03-26 22:58 | RAD ---
INDICATION: Shortness of breath. COMPARISON: Similar chest x-ray dated February 14, 2017 TECHNIQUE: PA and lateral views of the chest were obtained. FINDINGS: The heart and mediastinum are normal in size and contour. The lungs are grossly clear. There is no evidence of large pleural effusion. Visualized bones are normal for the patient's age. There is no radiographic evidence of free air beneath the diaphragm IMPRESSION: No radiographic evidence of acute cardiopulmonary disease.
== END 2017-03-26 23:05 | disposition home or self-care (01) ==
LOC: ED 21:41
DX: J40 Bronchitis, not specified as acute or chronic (principal); R06.02 Shortness of breath; J45.909 Unspecified asthma, uncomplicated
CPT/HCPCS: 71020; 93005; 94640; 99282; A9270-GY; J7512

== ENCOUNTER 2017-08-23 14:48 | Emergency (ER) | payer MEDICARE ==
[2017-08-23] MEDS ORDERED: Ondansetron INJ* 2 MG/ML VIAL IV ONE (16:02)
[2017-08-23] MEDS ORDERED: NS 0.9% 1000 ML* 1,000 ML IV ONE (16:02)
[2017-08-23] MEDS ORDERED: Morphine INJ* 4 MG/ML 1 ML CARPUJECT IV ONE (16:02)
[2017-08-23 16:39] LABS: Hematocrit 44 % (35-47); Hemoglobin 15.2 g/dl (12.0-16.0); Mean Corpuscular HGB Conc 34 g/dl (31-36); Mean Corpuscular Hemoglobin 29 pg (27-31); Mean Corpuscular Volume 83 fL (80-97); Mean Platelet Volume 9 um3 (7.4-10.4); Red Blood Count 5.31 10^6/ul (4.0-5.4); Red Cell Distribution Width 15 % (10.5-15)
[2017-08-23 16:54] LABS: Albumin 3.7 g/dL (3.2-5.2); BUN/Creatinine Ratio 13.4 (8-20); C Reactive Protein 17.03 mg/L (< 5.00); Calcium 9.4 mg/dL (8.6-10.3); EGFR African American 90.3 (>60); EGFR Non-African American 70.2 (>60); Globulin 2.6 g/dL (2-4); Total Bilirubin 1.2 mg/dL (0.2-1.0); Total Protein 6.3 g/dL (6.4-8.9)
[2017-08-23] MEDS ORDERED: Iohexol 300* (CONTRAST) 10 ML SDV IV ONE (16:56)
--- NOTE | 2017-08-23 17:27 | RAD ---
Indication: Abdominal pain. Contrast: Administered 81.3 ml of OMNIPAQUE 300 mg/ml CT of the abdomen and pelvis was performed after oral and IV contrast administration. Coronal and sagittal reconstructed images were obtained. Lung bases demonstrate no pleural fluid, nodules or masses. Heart is of normal size without evidence of pericardial effusion. Liver is normal in size. No focal lesions or intrahepatic ductal dilatation is noted. The common duct is not dilated. The gallbladder demonstrates no gallstones, pericholecystic fluid or wall thickening. The spleen is normal in size. No adrenal lesions are noted. The kidneys demonstrate symmetric nephrograms without hydronephrosis. Bilateral renal cysts are noted. Small left-sided retroperitoneal lymph nodes are noted measuring up to 10 mm. Atherosclerotic aorta is noted. Common iliac and external iliac arteries are unremarkable. The bladder is unremarkable. No dilated loops of bowel are noted. CT of the pelvis demonstrates no retroperitoneal or pelvic lymphadenopathy noted. The bony structures demonstrates degenerative disc disease at L5-S1. IMPRESSION: NO ABNORMAL MASSES OR FLUID COLLECTIONS ARE NOTED. BILATERAL RENAL CYSTS ARE NOTED. NO EVIDENCE OF BOWEL OBSTRUCTION IS NOTED.
[2017-08-23 17:32] LABS: Urine Bilirubin Negative (Negative); Urine Glucose Negative (Negative); Urine Nitrite Negative (Negative)
[2017-08-23 19:37] VITALS: BP 149/78
--- NOTE | 2017-08-25 08:22 | ED ---
Oliver Bates Angela, scribed for Demond Edwards MD on 08/23/17 at 1602 . Abdominal Pain/Female - HPI Summary HPI Summary: This pt is a 62 y/o female presenting to [facility] c/o worsening mid abdominal pain x5 days. Pt was seen by her PCP today and was referred to the ED for an US and blood work. Pt states her pain is non-radiating and is rated 8 out of 10 in severity. She notes that her pain is aggravated with PO intake of food and water. Pt reports having soft bowel movements after PO intake. She denies nausea , vomiting, constipation. PSHx: hysterectomy (years ago). - History of Current Complaint Chief Complaint: EDAbdPain Stated Complaint: ABD PAIN Time Seen by Provider: 08/23/17 15:46 Hx Obtained From: Patient Onset/Duration: Lasting Days, Still Present Timing: Days Severity Initially: Moderate Severity Currently: Severe Pain Intensity: 8 Pain Scale Used: 0-10 Numeric Radiates: No Aggravating Factor(s): Food - and liquids Alleviating Factor(s): Nothing Associated Signs and Symptoms: Positive: Other: - soft stools s/p eating. Negative: Constipation, Nausea, Vomiting Allergies/Adverse Reactions: Allergies Allergy/AdvReac Type Severity Reaction Status Date / Time Hydrocodone Allergy Rash And Verified 02/14/17 22:17 Itching Oxycodone AdvReac Itching Verified 02/14/17 22:17 PMH/Surg Hx/FS Hx/Imm Hx Endocrine/Hematology History: Reports: Hx Anemia - HX OF Denies: Hx Diabetes Cardiovascular History: Reports: Hx Angina - Prinzmetal's angina, Hx Coronary Artery Disease, Hx Hypercholesterolemia, Hx Hypertension - WELL CONTROLLED, Other Cardiovascular Problems/Disorders - HLD Denies: Hx Myocardial Infarction, Hx Pacemaker/ICD, Hx Valvular Heart Disease - PATIENT IS NOTED TO HAVE A MURMUR Respiratory History: Reports: Hx Asthma, Hx Chronic Obstructive Pulmonary Disease (COPD) GI History: Reports: Hx Gastroesophageal Reflux Disease, Other GI Disorders - Pancreatitis History: Reports: Hx Renal Disease - POLYCYSTIC DISEASE, Other Problems/ Disorders - Hx polycystic renal disease Denies: Hx Dialysis Musculoskeletal History: Reports: Hx Arthritis, Other Musculoskeletal History - MULTIPLE ORTHOPEDIC SURGERIES Sensory History: Reports: Hx Vision Problem - lazy eye Denies: Hx Cataracts, Hx Contacts or Glasses, Hx Hearing Aid Opthamlomology History: Reports: Hx Vision Problem - lazy eye Denies: Hx Cataracts, Hx Contacts or Glasses Neurological History: Reports: Other Neuro Impairments/Disorders - numbness in L arm/hand Psychiatric History: Reports: Hx Anxiety, Hx Depression, Hx Panic Disorder - Surgical History Surgery Procedure, Year, and Place: JOSI SHOULDER - RTC REPAIR [facility] Lt [facility]NEE - 2 SURG - MENISCUS REPAIR [facility] Lt BREAST - 2 LUMPECTOMIES - [facility]. APPENDECTOMY [facility]. HYSTERECTOMY [facility]. CARDIAC CATH - NO STENTS. Paridectomy Hx Anesthesia Reactions: Yes - PT STATES MOTHER HAD "UNKNOWN REACTION" TO ANESTHESIA - Immunization History Date of Tetanus Vaccine: UTD Date of Influenza Vaccine: none Infectious Disease History: No Infectious Disease History: Reports: Hx Hepatitis - HX HEP A A CHILD, Hx of Known/Suspected MRSA, Hx Shingles Denies: Hx Clostridium Difficile, Hx Human Immunodeficiency Virus (HIV), Hx Tuberculosis, Hx Known/Suspected VRE, Hx Known/Suspected VRSA, History Other Infectious Disease, Traveled Outside the [place] in Last 30 Days - Family History Known Family History: Positive: Cardiac Disease, Other - CAD - Social History Alcohol Use: Rare Substance Use Type: Reports: None Smoking Status (MU): Former Smoker Type: Cigarettes Amount Used/How Often: 1/2 PPD Length of Time of Smoking/Using Tobacco: 40 YRS Have You Smoked in the Last Year: Yes Review of Systems Negative: Fever, Chills Eyes: Negative ENT: Negative Cardiovascular: Negative Gastrointestinal: Other - soft bowel movements s/p eating Positive: Abdominal Pain. Negative: Vomiting, Nausea, Other - constipation Genitourinary: Negative Skin: Negative Neurological: Negative All Other Systems Reviewed And Are Negative: Yes Physical Exam - Summary Physical Exam Summary: VITAL SIGNS: Reviewed. GENERAL: Patient is a well-developed and nourished female who is lying comfortable in the stretcher. Patient is not in any acute respiratory distress. HEAD AND FACE: Normocephalic and atraumatic. EYES: PERRLA, EOMI x 2, No injected conjunctiva. EARS: Hearing grossly intact. Ear canals and tympanic membranes are WNL. MOUTH: Oropharynx within normal limits. NECK: Supple, trachea is midline, no adenopathy, no JVD. CHEST: Symmetric, no tenderness at palpation LUNGS: Clear to auscultation bilaterally. No wheezing or crackles. CVS: RRR, S1 and S2 present, no murmurs or gallops appreciated. ABDOMEN: Soft. Pt has periumbiilical tenderness, more RLQ than LLQ. No signs of distention. Positive bowel sounds. No rebound no guarding, and no masses palpated. No abdominal bruit or pulsations. EXTREMITIES: FROM in all major joints, no edema, no cyanosis or clubbing. NEURO: Alert and oriented x 3. No acute neurological deficits. Speech is normal. SKIN: Dry and warm Triage Information Reviewed: Yes Vital Signs On Initial Exam: Initial Vitals Temp Pulse Resp BP Pulse Ox 99.2 F 81 20 135/69 97 08/23/17 15:13 08/23/17 15:13 08/23/17 15:13 08/23/17 15:13 08/23/17 15:13 Vital Signs Reviewed: Yes Diagnostics - Vital Signs Vital Signs Temp Pulse Resp BP Pulse Ox 08/23/17 15:13 99.2 F 81 20 135/69 97 - Laboratory Result Diagrams: 08/23/17 16:32 08/23/17 16:32 Lab Statement: Any lab studies that have been ordered have been reviewed, and results considered in the medical decision making process. - CT Abdomen/Pelvis CT CT Interpretation: No Acute Changes - IMPRESSION: No abnormal masses or fluid collection are noted. Bilateral renal cysts are noted. No evidence of bowel obstruction is noted. ED physician has reviewed this radiology report and agrees. CT Interpretation Completed By: Radiologist - EKG 1616 Cardiac Rate: NL - 81 bpm EKG Rhythm: Sinus Rhythm EKG Interpretation: No ST elevation Re-Evaluation - Re-Evaluation First Eval Re-Evaluation Time: 17:57 Comment: I discussed the CT results with the pt. Abdominal Pain Fem Course/Dx - Course Course Of Treatment: This pt is a 62 y/o female presenting to [facility] c/o worsening mid abdominal pain x5 days. Pt was seen by her PCP today and was referred to the ED for an US and blood work. Pt states her pain is non- radiating and is rated 8 out of 10 in severity. She notes that her pain is aggravated with PO intake of food and water. Pt reports having soft bowel movements after PO intake. She denies nausea, vomiting, constipation. Test results without any significant abnormalities except for potassium of 3. Abdomen /pelvis CT shows no abnormal masses or fluid collections are noted. Bilateral renal cysts are noted. No evidence of bowel obstruction is noted. I offered the pt potassium, but she reports she doesnt do well with potassium pills. She states she would rather eat food with high potassium. She was given 1 dose of morphine and was observed for a couple of hours. The pts pain has resolved and is feeling better. At this point the pt is drinking and eating without any nausea and vomiting, without any pain. Therefore, the pt will be discharged home. Pt is hemodynamically stable, alert and oriented x3. PSHx: hysterectomy ( years ago). - Diagnoses Provider Diagnoses: Abdominal pain Discharge - Discharge Plan Condition: Stable Disposition: HOME Patient Education Materials: Abdominal Pain (ED) Referrals: [facility] PHYSICIAN REFERRAL [Outside] Additional Instructions: Please follow up with your primary care provider. The documentation as recorded by the Oliver hanson Angela accurately reflects the service I personally performed and the decisions made by me, Demond Edwards MD.
== END 2017-08-23 19:12 | disposition home or self-care (01) ==
LOC: ED 14:48
DX: R10.33 Periumbilical pain (principal); R10.31 Right lower quadrant pain; R10.32 Left lower quadrant pain; I25.119 Atherosclerotic heart disease of native coronary artery with unspecified angina pectoris; I10 Essential (primary) hypertension; E78.00 Pure hypercholesterolemia, unspecified; J44.9 Chronic obstructive pulmonary disease, unspecified; K21.9 Gastro-esophageal reflux disease without esophagitis; K85.90 Acute pancreatitis without necrosis or infection, unspecified; Q61.3 Polycystic kidney, unspecified; F41.0 Panic disorder [episodic paroxysmal anxiety]; F32.9 Major depressive disorder, single episode, unspecified; Z90.710 Acquired absence of both cervix and uterus; Z88.5 Allergy status to narcotic agent; Z87.891 Personal history of nicotine dependence
CPT/HCPCS: 36415; 74177; 80053; 81003; 82150; 83605; 83690; 83880; 85025; 86140; 93005; 96361; 96374; 96375; 99282; J2270; J2405; Q9967

== ENCOUNTER 2019-10-26 12:47 | Emergency (ER) | payer MEDICARE ==
[2019-10-26] MEDS ORDERED: Albuterol 2.5 MG/3 ML NEB.SOL* (0.083%) INH ONE (14:40)
--- NOTE | 2019-10-26 15:00 | ED ---
Shortness of Breath - HPI Summary HPI Summary: This patient is a 64 year old female presenting to [facility] with a chief complaint of SOB. She states it started off as a cold. She reports cough, and then flank and shoulder pain when she does cough. She states she was here 5 months ago for the same symptoms. She reports SOB. She states it is a productive cough with thick green sputum. Pt states hx of poly cystic disease and afib. She states she quit smoking 6 months ago. She states her O2 sat drops to 40-60% when she is sleeping. Pt denies any fever, chills, erythema of eyes, sore throat, CP, abdominal pain, N/V, dysuria, hematuria, myalgia, edema, rash, or dizziness. - History of Current Complaint Chief Complaint: EDUpperRespComplaint Time Seen by Provider: 10/26/19 14:25 Hx Obtained From: Patient - Allergy/Home Medications Allergies/Adverse Reactions: Allergies Allergy/AdvReac Type Severity Reaction Status Date / Time codeine Allergy Nausea Verified 10/26/19 12:56 hydrocodone Allergy Hives Verified 10/26/19 12:56 oxycodone Allergy Hives Verified 10/26/19 12:56 Home Medications: Home Medications Albuterol/Ipratropium RESP(NF) [Combivent Respimat(NF)] 1 puff INH DAILY [History Confirmed 10/26/19] Apixaban* [Eliquis*] 5 mg PO BID 10/26/19 [History Confirmed 10/26/19] Atorvastatin* [Lipitor 80 MG*] 80 mg PO BEDTIME 10/26/19 [History Confirmed ] Nitroglycerin 0.3 MG/HR PATCH* [Nitroglycerin 7.5 MG PATCH*] 1 patch TRANSDERM DAILY 10/26/19 [History Confirmed 10/26/19] PMH/Surg Hx/FS Hx/Imm Hx Endocrine/Hematology History: Reports: Hx Anemia - HX OF Denies: Hx Diabetes Cardiovascular History: Reports: Hx Angina - Prinzmetal's angina, Hx Coronary Artery Disease, Hx Hypercholesterolemia, Hx Hypertension - WELL CONTROLLED, Other Cardiovascular Problems/Disorders - HLD Denies: Hx Myocardial Infarction, Hx Pacemaker/ICD, Hx Valvular Heart Disease - PATIENT IS NOTED TO HAVE A MURMUR Respiratory History: Reports: Hx Asthma, Hx Chronic Obstructive Pulmonary Disease (COPD) GI History: Reports: Hx Gastroesophageal Reflux Disease, Other GI Disorders - Pancreatitis History: Reports: Hx Renal Disease - POLYCYSTIC DISEASE, Other Problems/ Disorders - Hx polycystic renal disease Denies: Hx Dialysis Musculoskeletal History: Reports: Hx Arthritis, Other Musculoskeletal History - MULTIPLE ORTHOPEDIC SURGERIES Sensory History: Reports: Hx Vision Problem - lazy eye Denies: Hx Cataracts, Hx Contacts or Glasses, Hx Hearing Aid Opthamlomology History: Reports: Hx Vision Problem - lazy eye Denies: Hx Cataracts, Hx Contacts or Glasses Neurological History: Reports: Other Neuro Impairments/Disorders - numbness in L arm/hand Psychiatric History: Reports: Hx Anxiety, Hx Depression, Hx Panic Disorder - Surgical History Surgery Procedure, Year, and Place: JOSI SHOULDER - RTC REPAIR [facility]. Lt KNEE - 2 SURG - MENISCUS REPAIR [facility]. Lt BREAST - 2 LUMPECTOMIES - [facility]. APPENDECTOMY [facility]. HYSTERECTOMY [facility]. CARDIAC CATH - NO STENTS. Paridectomy Hx Anesthesia Reactions: Yes - PT STATES MOTHER HAD "UNKNOWN REACTION" TO ANESTHESIA - Immunization History Date of Tetanus Vaccine: utd Date of Influenza Vaccine: unk Infectious Disease History: Yes Infectious Disease History: Reports: Hx Hepatitis - HX HEP A A CHILD, Hx of Known/Suspected MRSA, Hx Shingles Denies: Hx Clostridium Difficile, Hx Human Immunodeficiency Virus (HIV), Hx Tuberculosis, Hx Known/Suspected VRE, Hx Known/Suspected VRSA, History Other Infectious Disease, Traveled Outside the [place] in Last 30 Days - Family History Known Family History: Positive: Cardiac Disease - Social History Alcohol Use: None Hx Substance Use: No Substance Use Type: Reports: None Hx Tobacco Use: Yes Smoking Status (MU): Former Smoker Type: Cigarettes Amount Used/How Often: 1/2 PPD Length of Time of Smoking/Using Tobacco: 40 YRS Have You Smoked in the Last Year: Yes Review of Systems Negative: Fever, Chills Negative: Erythema Negative: Sore Throat Negative: Chest Pain Positive: Shortness Of Breath, Cough Negative: Abdominal Pain, Vomiting, Nausea Positive: flank pain. Negative: dysuria, hematuria Positive: Other - Shoulder pain.. Negative: Myalgia, Edema Negative: Rash Neurological: Other - Neg: Dizziness All Other Systems Reviewed And Are Negative: No Physical Exam - Summary Physical Exam Summary: Constitutional: Well-developed, Well-nourished, Alert. (-) Distressed Skin: Warm, Dry HENT: Normocephalic; Atraumatic Eyes: Conjunctiva normal Neck: Musculoskeletal ROM normal neck. (-) JVD, (-) Stridor, (-) Tracheal deviation Cardio: Rhythm regular, rate normal, Heart sounds normal; Intact distal pulses; The pedal pulses are 2+ and symmetric. Radial pulses are 2+ and symmetric. (-) Murmur Pulmonary/Chest wall: Effort normal. (-) Respiratory distress, (-) Wheezes, (-) Rales Abd: Soft, (-) tenderness, (-) Distension, (-) Guarding, (-) Rebound Musculoskeletal: (-) Edema Lymph: (-) Cervical adenopathy Neuro: Alert, Oriented x3 Psych: Mood and affect Normal Triage Information Reviewed: Yes Vital Signs On Initial Exam: Initial Vitals Temp Pulse Resp BP Pulse Ox 98.7 F 90 20 140/76 94 10/26/19 12:51 10/26/19 12:51 10/26/19 12:51 10/26/19 12:51 10/26/19 12:51 Vital Signs Reviewed: Yes Procedures - Sedation Patient Received Moderate/Deep Sedation with Procedure: No Diagnostics - Vital Signs Vital Signs Temp Pulse Resp BP Pulse Ox 10/26/19 14:34 81 95 10/26/19 12:51 98.7 F 90 20 140/76 94 - Laboratory Result Diagrams: 10/26/19 14:40 10/26/19 14:40 Lab Statement: Any lab studies that have been ordered have been reviewed, and results considered in the medical decision making process. - Radiology CXR Radiology Interpretation Completed By: Radiologist Summary of Radiographic Findings: No active cardiopulmonary disease is noted. ED Provider has reviewed this report. - EKG 1457 Cardiac Rate: NL - 79 BPM EKG Rhythm: Sinus Rhythm Summary of EKG Findings: No STEMI. ED Physician has reviewed this report. Course/Dx - Course Course Of Treatment: This patient is a 64 year old female presenting to [facility] with a chief complaint of SOB. All symptoms are related to coughing. She has no urinary symptoms. Labs were unremarkable except RBC 5.23 H, Glucose 118 H, and Alkaline Phosphatase 113H. CXR was negative for cardiopulmonary problems. EKG was unremarkable. Plan for discharge was discussed with the patient and she was agreeable with this plan. - Diagnoses Provider Diagnoses: Bronchitis, Chest wall muscle strain Discharge ED - Sign-Out/Discharge Documenting (check all that apply): Patient Departure - Discharge - Discharge Plan Condition: Stable Disposition: HOME Prescriptions: Albuterol HFA INHALER* [Ventolin HFA Inhaler*] 1 - 2 puff INH Q4H PRN #1 mdi PRN Reason: Cough Codeine Phosphate/Guaifenesin [Codeine/Guaifenesin 100-10 mg/5Ml] 5 ml PO BEDTIME #1 bottle MDD 5 ml DOXYcycline CAP(*) [DOXYcycline 100MG CAP(*)] 100 mg PO BID #14 cap predniSONE TAB* [Deltasone TAB*] 50 mg PO DAILY #4 tab Patient Education Materials: Acute Bronchitis (ED) Referrals: Harris Winston MD [Primary Care Provider] - 3 Days Additional Instructions: Return to ED with new or worsening symptoms. - Billing Disposition and Condition Condition: STABLE Disposition: Home - Attestation Statements Document Initiated by Maria Isabel: Yes Documenting Scribe: Óscar Copeland Provider For Whom Maria Isabel is Documenting (Include Credential): Prince Murphy MD Scribe Attestation: Óscar Bates, scribed for Prince Murphy MD on 10/26/19 at 2106. Scribe Documentation Reviewed: Yes Provider Attestation: The documentation as recorded by the annibÓscar cam accurately reflects the service I personally performed and the decisions made by me, Prince Murphy MD Status of Scribe Document: Viewed
[2019-10-26 15:02] LABS: ABS Basophils 0.1 10^3/ul (0-0.2); ABS Eosinophils 0.2 10^3/ul (0-0.6); ABS Lymphocytes 1.1 10^3/ul (1.0-4.8); ABS Monocytes 0.7 10^3/ul (0-0.8); Hematocrit 45 % (35-47); Hemoglobin 15.4 g/dL (12.0-16.0); Lymphocyte % 12.9 %; Mean Corpuscular HGB Conc 35 g/dL (31-36); Mean Corpuscular Hemoglobin 30 pg (27-31); Mean Corpuscular Volume 85 fL (80-97); Mean Platelet Volume 8.7 fL (7.4-10.4); Platelet Count 205 10^3/uL (150-450); Red Blood Count 5.23 10^6 /uL (3.70-4.87); Red Cell Distribution Width 14 % (10-15); White Blood Count 8.1 10^3/uL (3.5-10.8)
[2019-10-26 15:07] LABS: INR 1.07 (0.82-1.09)
[2019-10-26 15:15] LABS: Albumin 4.5 g/dL (3.2-5.2); Albumin/Globulin Ratio 1.6 (1-3); BUN/Creatinine Ratio 15.6 (8-20); Calcium 10.3 mg/dL (8.6-10.3); EGFR African American 90.8 (>60); Globulin 2.9 g/dL (2-4); Potassium 3.9 mmol/L (3.5-5.0); Total Bilirubin 0.9 mg/dL (0.2-1.0); Total Protein 7.4 g/dL (6.4-8.9)
[2019-10-26] MEDS ORDERED: predniSONE TAB* 20 MG PO ONE (15:23)
[2019-10-26] MEDS ORDERED: DOXYcycline CAP(*) 100 MG PO ONE (15:23)
[2019-10-26 16:38] LABS: Influenza A Molecular NEGATIVE (Negative); Influenza B Molecular NEGATIVE (Negative)
[2019-10-26 16:47] VITALS: BP 155/84
== END 2019-10-26 16:50 | disposition home or self-care (01) ==
LOC: ED 12:47
DX: J40 Bronchitis, not specified as acute or chronic (principal); S29.011A Strain of muscle and tendon of front wall of thorax, initial encounter; X58.XXXA Exposure to other specified factors, initial encounter; Y92.9 Unspecified place or not applicable; Z88.5 Allergy status to narcotic agent; D64.9 Anemia, unspecified; I25.10 Atherosclerotic heart disease of native coronary artery without angina pectoris; E78.00 Pure hypercholesterolemia, unspecified; I10 Essential (primary) hypertension; J44.9 Chronic obstructive pulmonary disease, unspecified; K21.9 Gastro-esophageal reflux disease without esophagitis; F41.9 Anxiety disorder, unspecified; F32.9 Major depressive disorder, single episode, unspecified; Z87.891 Personal history of nicotine dependence; Z90.89 Acquired absence of other organs; Z90.710 Acquired absence of both cervix and uterus; Z79.01 Long term (current) use of anticoagulants; Z79.899 Other long term (current) drug therapy
CPT/HCPCS: 36415; 71045; 80053; 83605; 84484; 85025; 85610; 85730; 87040; 93005; 99283; A9270-GY; J7512